=== PATIENT | female | born 1980 | race Caucasian/White ===

== ENCOUNTER 2018-12-04 22:22 | Inpatient (IN) | payer BC, OTHER ==
[2018-12-04 22:53] LABS: ABS Basophils 0.1 10^3/ul (0-0.2); ABS Eosinophils 0.5 10^3/ul (0-0.6); ABS Lymphocytes 2.7 10^3/ul (1.0-4.8); ABS Monocytes 0.8 10^3/ul (0-0.8); ABS Neutrophils 6.7 10^3/ul (1.5-7.7); Eosinophil % 4.3 %; Hematocrit 42 % (35-47); Hemoglobin 13.9 g/dL (12.0-16.0); Lymphocyte % 25.1 %; Mean Corpuscular HGB Conc 33 g/dL (31-36); Mean Corpuscular Hemoglobin 28 pg (27-31); Mean Corpuscular Volume 84 fL (80-97); Mean Platelet Volume 9.1 fL (7.4-10.4); Nucleated Red Blood Cells % 0.1; Platelet Count 268 10^3/uL (150-450); Red Blood Count 4.97 10^6 /uL (3.70-4.87); Red Cell Distribution Width 15 % (10-15); White Blood Count 10.8 10^3/uL (3.5-10.8)
[2018-12-04 22:57] LABS: Urine Appearance Cloudy; Urine Bilirubin Negative (Negative); Urine Blood Negative (Negative); Urine Color Yellow; Urine Glucose Negative (Negative); Urine Ketones Negative (Negative); Urine Nitrite Negative (Negative); Urine Protein Negative (Negative); Urine Specific Gravity 1.019 (1.010-1.030); Urine Urobilinogen Negative (Negative)
--- NOTE | 2018-12-04 23:09 | ED ---
Psychiatric Complaint - HPI Summary HPI Summary: 38-year-old female presents with suicidal ideation for the past couple days. States they recently switched her medications and she is feeling out of control. She states has been under a lot of stress recently due to work and getting a new car and house. She denies any drug use. she denies any plan. no homicidal thoughts. states she would never act on these thoughts as she has kids. she denies any pain. - History Of Current Complaint Chief Complaint: EDSuicidal Time Seen by Provider: 12/04/18 22:37 - Allergies/Home Medications Allergies/Adverse Reactions: Allergies Allergy/AdvReac Type Severity Reaction Status Date / Time amoxicillin Allergy Hives Verified 12/04/18 22:54 Sulfa (Sulfonamide Allergy Hives Verified 12/04/18 22:54 Antibiotics) Home Medications: Home Medications ALPRAZolam [Alprazolam] 2 mg PO BEDTIME 12/04/18 [History Confirmed 12/04/18] Fluoxetine (Nf) Cap [Fluoxetine HCl] 40 mg PO DAILY 12/04/18 [History Confirmed 12/04/18] Lisinopril [Zestril] 20 mg PO DAILY 12/04/18 [History Confirmed 12/04/18] [place]-3 Fatty Acids (Nf) [Fish Oil (NF)] 1,000 mg PO DAILY 12/04/18 [History Confirmed 12/04/18] Omeprazole 40 mg PO DAILY 12/04/18 [History Confirmed 12/04/18] Temazepam [Restoril] 30 mg PO BEDTIME 12/04/18 [History Confirmed 12/04/18] Vit D3/Folic Acid/B2/B6/B12 [Folgard Tablet] 125 mcg PO DAILY 12/04/18 [History Confirmed 12/04/18] PMH/Surg Hx/FS Hx/Imm Hx Endocrine/Hematology History: Denies: Hx Anticoagulant Therapy Respiratory History: Denies: Hx Asthma Infectious Disease History: No Infectious Disease History: Denies: Traveled Outside the [place] in Last 30 Days - Family History Known Family History: Positive: Non-Contributory - Social History Alcohol Use: Occasionally Substance Use Type: Reports: Marijuana Smoking Status (MU): Never Smoked Tobacco Review of Systems Negative: Fever Negative: Chest Pain Negative: Shortness Of Breath Positive: Depressed All Other Systems Reviewed And Are Negative: Yes Physical Exam Triage Information Reviewed: Yes Vital Signs On Initial Exam: Initial Vitals Temp Pulse Resp BP Pulse Ox 98.2 F 82 15 159/94 97 12/04/18 22:24 12/04/18 22:24 12/04/18 22:24 12/04/18 22:24 12/04/18 22:24 Vital Signs Reviewed: Yes Appearance: Positive: Well-Appearing Skin: Positive: Warm, Dry Head/Face: Positive: Normal Head/Face Inspection Eyes: Positive: Normal, Conjunctiva Clear ENT: Positive: Pharynx normal Respiratory/Lung Sounds: Positive: Clear to Auscultation, Breath Sounds Present Cardiovascular: Positive: Normal, RRR Musculoskeletal: Positive: Normal Neurological: Positive: Normal Psychiatric: Positive: Depressed Procedures - Sedation Patient Received Moderate/Deep Sedation with Procedure: No Diagnostics - Vital Signs Vital Signs Temp Pulse Resp BP Pulse Ox 12/04/18 22:24 98.2 F 82 15 159/94 97 - Laboratory Lab Results: Lab Results 12/04/18 12/04/18 Range/Units 22:44 22:46 WBC 10.8 (3.5-10.8) 10^3/uL RBC 4.97 H (3.70-4.87) 10^6 /uL Hgb 13.9 (12.0-16.0) g/dL Hct 42 (35-47) % MCV 84 (80-97) fL MCH 28 (27-31) pg MCHC 33 (31-36) g/dL RDW 15 (10-15) % Plt Count 268 (150-450) 10^3/uL MPV 9.1 (7.4-10.4) fL Neut % (Auto) 62.6 % Lymph % (Auto) 25.1 % [place] % (Auto) 7.4 % Eos % (Auto) 4.3 % Baso % (Auto) 0.6 % Absolute Neuts (auto) 6.7 (1.5-7.7) 10^3/ul Absolute Lymphs (auto) 2.7 (1.0-4.8) 10^3/ul Absolute Monos (auto) 0.8 (0-0.8) 10^3/ul Absolute Eos (auto) 0.5 (0-0.6) 10^3/ul Absolute Basos (auto) 0.1 (0-0.2) 10^3/ul Absolute Nucleated RBC 0.0 10^3/ul Nucleated RBC % 0.1 Urine Color Yellow Urine Appearance Cloudy Urine pH 6.0 (5-9) Ur Specific [place] 1.019 (1.010-1.030) Urine Protein Negative (Negative) Urine Ketones Negative (Negative) Urine Blood Negative (Negative) Urine Nitrate Negative (Negative) Urine Bilirubin Negative (Negative) Urine Urobilinogen Negative (Negative) Ur Leukocyte Esterase Negative (Negative) Urine Glucose Negative (Negative) Result Diagrams: 12/04/18 22:46 12/04/18 22:46 Lab Statement: Any lab studies that have been ordered have been reviewed, and results considered in the medical decision making process. Course/Dx - Course Course Of Treatment: 38-year-old female presents with suicidal ideation for the past couple days. States they recently switched her medications and she is feeling out of control. She states has been under a lot of stress recently due to work and getting a new car and house. She denies any drug use. she denies any plan. no homicidal thoughts. states she would never act on these thoughts as she has kids. she denies any pain. on exam has normal physical exam. is medical clear for [facility]. patient will be admitted after mental health evaulation - Differential Dx/Clinical Impression Differential Diagnosis/HQI/PQRI: Positive: Anxiety, Depression, Suicidal Ideation Provider Diagnosis: Mood disorder Discharge ED - Sign-Out/Discharge Documenting (check all that apply): Patient Departure - Discharge Plan Condition: Stable [facility] [place] Referrals: No Primary Care Phys,NOPCP [Primary Care Provider] - - Billing Disposition and Condition Condition: STABLE Disposition: Psychiatric Facility [facility] [place]
[2018-12-04 23:13] LABS: ALT 39 U/L (7-52); AST 24 U/L (13-39); Albumin 4.4 g/dL (3.2-5.2); Albumin/Globulin Ratio 1.3 (1-3); Alkaline Phosphatase 67 U/L (34-104); Anion Gap 7 mmol/L (2-11); BUN/Creatinine Ratio 12.9 (8-20); Blood Urea Nitrogen 13 mg/dL (6-24); CO2 Carbon Dioxide 25 mmol/L (22-32); Calcium 9.3 mg/dL (8.6-10.3); Chloride 106 mmol/L (101-111); EGFR African American 74.6 (>60); EGFR Non-African American 61.7 (>60); Globulin 3.3 g/dL (2-4); Glucose 89 mg/dL (70-100); Sodium 138 mmol/L (135-145); Total Protein 7.7 g/dL (6.4-8.9)
[2018-12-04 23:16] LABS: Acetaminophen < 15 mcg/mL; Alcohol < 10 mg/dL (<10); Salicylate < 2.50 mg/dL (<30)
[2018-12-04 23:19] LABS: Urine Benzodiazepine Screen Presumptive Positive (None Detect); Urine Opiates Screen None Detected (None Detect)
[2018-12-04 23:32] LABS: TSH (Thyroid Stimulating Horm) 0.76 mcIU/mL (0.34-5.60)
[2018-12-05] MEDS ORDERED: Al Hydrox/Mg Hydrox/Simet LIQ* 30 ML UDC PO PRN (04:48)
[2018-12-05] MEDS ORDERED: FOLGARD PO SCH (09:00)
[2018-12-05] MEDS ORDERED: Aspirin TAB* 325 MG PO ONE (10:05)
[2018-12-05] MEDS ORDERED: Influenza VAC *QUAD* 2019-20* 0.5 ML SYRINGE IM ONE (11:00)
[2018-12-05] MEDS: CMCS:OMEGA-3 FATTY ACIDS (NF) 1,000 MG CAP PO SCH (11:15)
[2018-12-05] MEDS: Lisinopril TAB* 10 MG PO SCH (11:15)
[2018-12-05] MEDS: Pantoprazole TAB * 40 MG TAB PO SCH (11:16)
[2018-12-05] MEDS: Vitamin THERAPEUTIC TAB PO SCH (11:16)
[2018-12-05] MEDS: Acetaminophen TAB* 325 MG PO PRN ×2 (11:16→16:58)
[2018-12-05] MEDS: clonazePAM TAB(*) 1 MG PO SCH ×2 (13:08→20:06)
[2018-12-05] MEDS ORDERED: Aspirin TAB* 325 MG PO PRN (16:45)
[2018-12-05] MEDS: Ibuprofen TAB* 600 MG PO PRN (16:57)
[2018-12-05] MEDS ORDERED: Lurasidone(*) 40 MG TAB PO SCH (17:00)
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
[2018-12-05] MEDS ORDERED: Temazepam CAP* 15 MG PO SCH (21:00)
[2018-12-05] MEDS ORDERED: FLUoxetine CAP* 20 MG PO SCH (21:00)
[2018-12-06] MEDS ORDERED: Nicotine* 2MG (FRUIT FLAVOR) GUM PO PRN (03:19)
[2018-12-06] MEDS: clonazePAM TAB(*) 1 MG PO SCH ×2 (08:56→20:58)
[2018-12-06] MEDS: Cyanocobalamin TAB* 500 MCG PO SCH (08:58)
[2018-12-06] MEDS: Folic Acid TAB* 1 MG PO SCH (08:59)
[2018-12-06] MEDS: CMCS:OMEGA-3 FATTY ACIDS (NF) 1,000 MG CAP PO SCH (09:00)
[2018-12-06] MEDS: Lisinopril TAB* 10 MG PO SCH (09:00)
[2018-12-06] MEDS: Pantoprazole TAB * 40 MG TAB PO SCH (09:01)
[2018-12-06] MEDS: Vitamin THERAPEUTIC TAB PO SCH (09:02)
[2018-12-06] MEDS: Pyridoxine TAB* 50 MG PO SCH (09:03)
[2018-12-06] MEDS: Acetaminophen TAB* 325 MG PO PRN (10:59)
[2018-12-06] MEDS ORDERED: Temazepam CAP* 15 MG PO PRN (13:13)
--- NOTE | 2018-12-06 14:10 | PN ---
Subjective - Subjective Date of Service: 12/06/18 Service Type: 12776 Hosp care 25 min moderate complexity Subjective: Leather Scraper spoke with patient's outpatient psychiatrist, Dr Rodrigues. She reports Sita has been working well with her and was last seen in october when she increased fluoxetine. She states Sita did not show for her last appt on 11/17 , which is not a typical pattern. Dr Rodrigues suggested that Sita meet with Jane Fox LCSW for therapy ([phone]). Leather Scraper notified her of medication changes and patient presentation. Sita reports feeling "better" and slept well last night for the first time in a very long time. She is tearful at times and continues to endorse excessive guilt and self-depricating thoughts. She states she is experiencing much lower abdominal pain and gives permission for proposal writer to speak with PCP. Spoke with Maricarmen Parra at [facility] primary care in [place]. She ordered U/S for transvaginal and transabdominal related to RLQ. Objective - General Observations Appearance: Well Groomed Stature: Overweight Posture: WNL Eye Contact: Average Behavior/Activity: WNL - Interaction Observations Attitude Towards Examiner: Cooperative Stated Mood: Dysphoric Affect: Full Speech Pattern/Tone: Clear, Appropriate, Quiet Volume Thought Process: Coherent, Circumstantial Perception: WNL Thought Content: Depressive, Self-Deprecatory Thought Process: Lethality: Passive Wish Hallucination Type: Denies Delusion Type: Denies - Cognitive Function Orientation: A&O x 4 Level of Consciousness: Alert Cognition: WNL Estimated Intelligence: Normal Insight: WNL Judgment Within Normal Limits: No Ability to Make Reasonable Decisions: Moderately Impaired - Medication Compliance Cooperative with Inpatient Medication Regimen: Yes - Group Participation Participates in Group Activities: Yes Assessment - Assessment Merits Inpatient Hospitalization: For Immediate Safety, For Stabilization Inpatient DSM-V Dx: F31.81 Clinical Impression: 38yo wf, employed, domiciled, with children from previous marriage, who presented to ED with worsening depression, anxiety and suicidal ideation. She has a history of trauma and has since estranged herself from family of origin. She merits hospitalization for immediate safety and stabilization. Plan - Plan Treatment Plan: Name: SITA WEBB Birthdate: 1980 [id number] continue acute intensive psychiatric treatment. may decrease to q30min obs, allow staff pass and computer use. increase lurasidone to 60mg, change temazepam to prn dosing. patient may use own fish oil and vit D supplements. obtain transvaginal and bladder U/S. discharge to include outpatient providers and spouse. Continued Medication Management: Start Medication Medications: Current Medications Acetaminophen (Tylenol Tab*) 650 mg PO Q4H PRN PRN Reason: PAIN or TEMP > 101 F Last Admin: 12/06/18 10:59 Dose: 650 mg Al Hydrox/Mg Hydrox/Simethicone (Maalox Plus*) 30 ml PO Q4H PRN PRN Reason: INDIGESTION Aspirin (Aspirin Tab*) 325 mg PO BID PRN PRN Reason: headache Cholecalciferol (Vitamin D3 Cap/Tab (Nf)) 1 cap PO DAILY [facility] Clonazepam (Klonopin Tab(*)) 1 mg PO BID [facility] Last Admin: 12/06/18 08:56 Dose: 1 mg Cyanocobalamin (Vitamin B12 Tab*) 125 mcg PO DAILY [facility] Last Admin: 12/06/18 08:58 Dose: 125 mcg Fish Oil (Fish Oil (Nf)) 1,000 mg PO DAILY [facility] Folic Acid (Folvite Tab*) 1 mg PO DAILY [facility] Last Admin: 12/06/18 08:59 Dose: 1 mg Ibuprofen (Motrin Tab*) 600 mg PO Q6H PRN PRN Reason: PAIN - MILD Last Admin: 12/05/18 16:57 Dose: 600 mg Lisinopril (Prinivil Tab*) 20 mg PO DAILY [facility] Last Admin: 12/06/18 09:00 Dose: 20 mg Lurasidone HCl (Latuda) 60 mg PO 1700 [facility] Multivitamins (Theragran Tab*) 1 tab PO DAILY [facility] Last Admin: 12/06/18 09:02 Dose: 1 tab Nicotine Polacrilex (Nicotine Gum*) 2 mg PO Q2H PRN PRN Reason: CRAVING Pantoprazole Sodium (Protonix Tab*) 40 mg PO DAILY [facility] Last Admin: 12/06/18 09:01 Dose: 40 mg Pyridoxine HCl (Vitamin B6 Tab*) 12.5 mg PO DAILY [facility] Last Admin: 12/06/18 09:03 Dose: 12.5 mg Temazepam (Restoril Cap*) 30 mg PO BEDTIME PRN PRN Reason: INSOMNIA - Discharge Plan Discharge Plan: Inpatient Hospitalization
[2018-12-06] MEDS: Lurasidone(*) 40 MG TAB PO SCH (18:46)
[2018-12-07 08:25] LABS: HDL Cholesterol 41.8 mg/dL
[2018-12-07] MEDS: Lisinopril TAB* 10 MG PO SCH (09:07)
[2018-12-07] MEDS: clonazePAM TAB(*) 1 MG PO SCH ×2 (09:07→20:37)
[2018-12-07] MEDS: Pantoprazole TAB * 40 MG TAB PO SCH (09:08)
[2018-12-07] MEDS: Cyanocobalamin TAB* 500 MCG PO SCH (09:08)
[2018-12-07] MEDS: Folic Acid TAB* 1 MG PO SCH (09:09)
[2018-12-07] MEDS: Vitamin THERAPEUTIC TAB PO SCH (09:10)
[2018-12-07] MEDS: Pyridoxine TAB* 50 MG PO SCH (09:10)
[2018-12-07] MEDS: OMEGA 3 FATTY ACIDS 1000 MG PO SCH (09:11)
[2018-12-07] MEDS: CHOLECALCIFEROL 5000 UNIT PO SCH (10:17)
[2018-12-07] MEDS: Acetaminophen TAB* 325 MG PO PRN (10:51)
[2018-12-07] MEDS: Ibuprofen TAB* 600 MG PO PRN (14:16)
--- NOTE | 2018-12-07 14:58 | PN ---
Subjective - Subjective Date of Service: 12/07/18 Service Type: 78169 Hosp care 25 min moderate complexity Subjective: Patient reports full night sleep without temazepam. She denies side effects from new medications. She states she has coordinated with her work regarding taking time off. She reports improved mood and would like to be discharged tomorrow. Objective - General Observations Appearance: Well Groomed Stature: WNL Posture: WNL Eye Contact: Average Behavior/Activity: WNL - Interaction Observations Attitude Towards Examiner: Cooperative Stated Mood: Euthymic Affect: Full Speech Pattern/Tone: Clear, Appropriate, Normal Volume Thought Process: Coherent, Goal Directed Perception: WNL Thought Content: WNL Hallucination Type: Denies Delusion Type: Denies - Cognitive Function Orientation: A&O x 4 Level of Consciousness: Alert Cognition: WNL Estimated Intelligence: Normal Insight: WNL Judgment Within Normal Limits: Yes - Medication Compliance Cooperative with Inpatient Medication Regimen: Yes - Group Participation Participates in Group Activities: Yes Assessment - Assessment Merits Inpatient Hospitalization: For Immediate Safety, For Stabilization, For Discharge Planning Inpatient DSM-V Dx: F31.81 Clinical Impression: 38yo wf, employed, domiciled, with children from previous marriage, who presented to ED with worsening depression, anxiety and suicidal ideation. She has a history of trauma and has since estranged herself from family of origin. She is tolerating medication changes and stabilizing in this structured setting. Plan - Plan Treatment Plan: Name: AZAR WEBB Birthdate: 1980 [id number] continue acute intensive psychiatric treatment. may decrease to q30min obs, allow staff pass and computer use. continue current medications. discharge to include outpatient providers and spouse. Medications: Current Medications Acetaminophen (Tylenol Tab*) 650 mg PO Q4H PRN PRN Reason: PAIN or TEMP > 101 F Last Admin: 12/07/18 10:51 Dose: 650 mg Al Hydrox/Mg Hydrox/Simethicone (Maalox Plus*) 30 ml PO Q4H PRN PRN Reason: INDIGESTION Aspirin (Aspirin Tab*) 325 mg PO BID PRN PRN Reason: headache Cholecalciferol (Vitamin D3 Cap/Tab (Nf)) 1 cap PO DAILY [facility] Last Admin: 12/07/18 10:17 Dose: Not Given Clonazepam (Klonopin Tab(*)) 1 mg PO BID [facility] Last Admin: 12/07/18 09:07 Dose: 1 mg Cyanocobalamin (Vitamin B12 Tab*) 125 mcg PO DAILY [facility] Last Admin: 12/07/18 09:08 Dose: 125 mcg Fish Oil (Fish Oil (Nf)) 1,000 mg PO DAILY [facility] Last Admin: 12/07/18 09:11 Dose: 1,000 mg Folic Acid (Folvite Tab*) 1 mg PO DAILY [facility] Last Admin: 12/07/18 09:09 Dose: 1 mg Ibuprofen (Motrin Tab*) 600 mg PO Q6H PRN PRN Reason: PAIN - MILD Last Admin: 12/07/18 14:16 Dose: 600 mg Lisinopril (Prinivil Tab*) 20 mg PO DAILY [facility] Last Admin: 12/07/18 09:07 Dose: 20 mg Lurasidone HCl (Latuda) 60 mg PO 1700 [facility] Last Admin: 12/06/18 18:46 Dose: 60 mg Multivitamins (Theragran Tab*) 1 tab PO DAILY [facility] Last Admin: 12/07/18 09:10 Dose: 1 tab Nicotine Polacrilex (Nicotine Gum*) 2 mg PO Q2H PRN PRN Reason: CRAVING Pantoprazole Sodium (Protonix Tab*) 40 mg PO DAILY [facility] Last Admin: 12/07/18 09:08 Dose: 40 mg Pyridoxine HCl (Vitamin B6 Tab*) 12.5 mg PO DAILY [facility] Last Admin: 12/07/18 09:10 Dose: 12.5 mg Temazepam (Restoril Cap*) 30 mg PO BEDTIME PRN PRN Reason: INSOMNIA - Discharge Plan Discharge Plan: Outpatient Follow Up
[2018-12-07] MEDS: Lurasidone(*) 40 MG TAB PO SCH (17:28)
[2018-12-08] MEDS: Pyridoxine TAB* 50 MG PO SCH (09:06)
[2018-12-08] MEDS: Vitamin THERAPEUTIC TAB PO SCH (09:06)
[2018-12-08] MEDS: Lisinopril TAB* 10 MG PO SCH (09:08)
[2018-12-08] MEDS: Cyanocobalamin TAB* 500 MCG PO SCH (09:08)
[2018-12-08] MEDS: Pantoprazole TAB * 40 MG TAB PO SCH (09:09)
[2018-12-08] MEDS: Folic Acid TAB* 1 MG PO SCH (09:10)
[2018-12-08] MEDS: clonazePAM TAB(*) 1 MG PO SCH (09:10)
[2018-12-08 10:25] VITALS: BP 117/56
[2018-12-08] MEDS: CHOLECALCIFEROL 5000 UNIT PO SCH (10:56)
[2018-12-08] MEDS: OMEGA 3 FATTY ACIDS 1000 MG PO SCH (10:57)
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
== END 2018-12-08 13:47 | disposition home or self-care (01) | DRG 753 ==
LOC: ED 22:22 → BSU 12-05 03:59
PROVIDERS: ADMIT Psychiatry & Neurology Psychiatry; ATTEND Psychiatry & Neurology Psychiatry
DX: F31.81 Bipolar II disorder (principal); R45.851 Suicidal ideations; Z62.810 Personal history of physical and sexual abuse in childhood; G43.909 Migraine, unspecified, not intractable, without status migrainosus; I10 Essential (primary) hypertension; F43.10 Post-traumatic stress disorder, unspecified; F12.90 Cannabis use, unspecified, uncomplicated; F41.9 Anxiety disorder, unspecified; R10.31 Right lower quadrant pain; Z72.89 Other problems related to lifestyle; Z88.2 Allergy status to sulfonamides; Z88.0 Allergy status to penicillin
CPT/HCPCS: 36415; 76830; 76857; 80053; 80061; 80307; 80320; 80329; 81003; 83036; 84443; 85025; 90686; 99222; 99232; 99238; 99284; A9270-GY; G0480